=== PATIENT | male | born 1990 | race Caucasian/White ===

== ENCOUNTER 2018-03-20 21:34 | Inpatient (IN) | payer OTHER ==
[~2018-03-20] VITALS: Ht 180.3 cm; Wt 129.9 kg
[2018-03-20 22:57] LABS: Basophils # (auto) 0.1 uL; Basophils % (auto) 0.8 % (0.0-2.0); Eosinophils # (auto) 0.2 uL; Eosinophils % (auto) 2.7 % (0.0-7.0); Hematocrit 46.3 % (41.0-53.0); Lymphocytes # (auto) 1.9 uL; Lymphocytes % (auto) 26.9 % (10.0-50.0); Mean Corpuscular Hemoglobin 31.8 pg (28.0-32.0); Mean Corpuscular Hgb Conc. 34.7 g/dL (32.0-36.0); Mean Corpuscular Volume 91.6 fL (80.0-100.0); Monocytes # (auto) 0.6 uL; Monocytes % (auto) 8.9 % (0.0-12.0); Neutrophils # (auto) 4.3 uL; Neutrophils % (auto) 60.7 % (37.0-80.0); Nucleated Red Blood Cells % 0.2 %; Platelet Count (auto) 283 10^3/uL (140-450); Red Blood Cells 5.05 10^6/uL (4.5-5.90); Red Cell Distribution Width 13.1 % (11.8-14.3); White Blood Cell 7.1 10^3/uL (4.4-10.8)
[2018-03-20 23:18] LABS: Albumin 3.5 g/dL (3.4-5.0); Bilirubin, Total 2.8 mg/dL (0.2-1.0); Potassium 4.1 mmol/L (3.5-5.1); Total Protein 7.4 g/dL (6.4-8.2)
[2018-03-21] MEDS ORDERED: SODIUM CHLORIDE 0.9% 1,000 ML IV ONE (06:50)
[2018-03-21] MEDS ORDERED: KETOROLAC TROMETH 30 MG/ML 1ML VIAL IV ONE (07:00)
[2018-03-21] MEDS ORDERED: METOCLOPRAMIDE HCL 5MG/ml INJ 2ml VIAL IV ONE (07:00)
[2018-03-21 07:51] LABS: INR 0.93 (0.9-1.15); Partial Thromboplastin Time 27.5 sec (23.78-33.04)
[2018-03-21 10:18] LABS: Urine Bacteria FEW /hpf (None Seen); Urine Blood Negative /uL (Negative); Urine Mucus FEW (None Seen); Urine Specific Gravity 1.033 (1.001-1.035); Urine WBC 1 /hpf (0 - 3)
[2018-03-21] MEDS ORDERED: PANTOPRAZOLE 40 MG TAB PO ONE ×2 (14:00→14:15)
[2018-03-21] MEDS ORDERED: cefTRIAXone 1GM/10ml IVPUSH 10 ML IV ONE ×2 (14:00→14:15)
[2018-03-21] MEDS ORDERED: MORPHINE SULF INJ 2 MG/ML SYRINGE 1ML IV PRN ×2 (14:15)
[2018-03-21] MEDS ORDERED: ONDANSETRON HCL 4 MG/2 ML VIAL IV PRN (14:15)
[2018-03-21] MEDS ORDERED: NITROGLYCERIN 0.4 MG SL TAB SL PRN (14:15)
[2018-03-21] MEDS ORDERED: DOCUSATE SOD 100 MG CAP PO PRN (14:15)
[2018-03-21] MEDS ORDERED: ZINC SULFATE 220mg CAP or TAB PO ONE (14:15)
[2018-03-21] MEDS ORDERED: TEMAZEPAM 15 MG CAP PO PRN (14:15)
[2018-03-21] MEDS ORDERED: ACETAMINOPHEN 325 MG TAB PO PRN (14:15)
[2018-03-21] MEDS ORDERED: FAMOTIDINE 20 MG TAB PO ONE (14:30)
[2018-03-21] MEDS ORDERED: cloNIDine HCL 0.1 MG TAB PO PRN (14:30)
[2018-03-21] MEDS ORDERED: MULTIPLE VITAMIN TAB PO ONE (14:30)
[2018-03-21] MEDS ORDERED: ASCORBIC ACID 500 MG TAB PO ONE (14:30)
[2018-03-21] MEDS: SODIUM CHLORIDE 0.9% 1,000 ML IV SCH (15:00)
[2018-03-21] MEDS: metroNIDAZOLE 500MG/100ML 100 ML IV SCH ×2 (15:00→21:49)
[2018-03-21 18:42] VITALS: BP 115/74
[2018-03-21 21:45] VITALS: BP 136/72
[2018-03-21] MEDS: FAMOTIDINE 20 MG TAB PO SCH (21:47)
[2018-03-21] MEDS: ASCORBIC ACID 500 MG TAB PO SCH (21:47)
[2018-03-22 04:47] LABS: Basophils # (auto) 0 uL; Basophils % (auto) 0.6 % (0.0-2.0); Eosinophils # (auto) 0.2 uL; Eosinophils % (auto) 5.4 % (0.0-7.0); Hematocrit 42.7 % (41.0-53.0); Hemoglobin 14.7 g/dL (13.5-17.5); Lymphocytes # (auto) 1.4 uL; Lymphocytes % (auto) 32.7 % (10.0-50.0); Mean Corpuscular Hemoglobin 31.8 pg (28.0-32.0); Mean Corpuscular Hgb Conc. 34.4 g/dL (32.0-36.0); Mean Corpuscular Volume 92.4 fL (80.0-100.0); Monocytes # (auto) 0.6 uL; Monocytes % (auto) 14.3 % (0.0-12.0); Nucleated Red Blood Cells % 0.1 %; Platelet Count (auto) 247 10^3/uL (140-450); Red Blood Cells 4.62 10^6/uL (4.5-5.90); Red Cell Distribution Width 13.2 % (11.8-14.3); White Blood Cell 4.2 10^3/uL (4.4-10.8)
[2018-03-22 05:00] VITALS: BP 135/67
[2018-03-22 05:14] LABS: BUN/Creatinine Ratio 8.1; Bilirubin, Total 8.6 mg/dL (0.2-1.0); Calcium 8.3 mg/dL (8.5-10.1); Potassium 3.9 mmol/L (3.5-5.1); Total Protein 6.3 g/dL (6.4-8.2)
[2018-03-22] MEDS: metroNIDAZOLE 500MG/100ML 100 ML IV SCH ×3 (06:06→21:51)
[2018-03-22] MEDS: SODIUM CHLORIDE 0.9% 1,000 ML IV SCH (06:06)
[2018-03-22 08:00] VITALS: BP 135/65
[2018-03-22 09:05] VITALS: BP 135/65
[2018-03-22] MEDS: cefTRIAXone 1GM/10ml IVPUSH 10 ML IV SCH (09:21)
[2018-03-22] MEDS: MULTIPLE VITAMIN TAB PO SCH (09:21)
[2018-03-22] MEDS: ASCORBIC ACID 500 MG TAB PO SCH ×2 (09:21→21:51)
[2018-03-22] MEDS: FAMOTIDINE 20 MG TAB PO SCH ×2 (09:22→21:51)
[2018-03-22] MEDS: ZINC SULFATE 220mg CAP or TAB PO SCH (09:22)
[2018-03-22] MEDS: PANTOPRAZOLE 40 MG TAB PO SCH (09:22)
[2018-03-22 12:20] VITALS: BP 147/85
[2018-03-22 16:51] VITALS: BP 137/81
[2018-03-22 21:30] VITALS: BP 104/59
[2018-03-23] VITALS (7 sets, daily range): BP systolic 127–142; BP diastolic 68–85
[2018-03-23] MEDS: SODIUM CHLORIDE 0.9% 1,000 ML IV SCH ×2 (03:55→15:28)
[2018-03-23 05:38] LABS: Basophils # (auto) 0 uL; Basophils % (auto) 0.7 % (0.0-2.0); Eosinophils # (auto) 0.2 uL; Eosinophils % (auto) 4.4 % (0.0-7.0); Hematocrit 42.9 % (41.0-53.0); Lymphocytes # (auto) 1.8 uL; Lymphocytes % (auto) 35.1 % (10.0-50.0); Mean Corpuscular Hemoglobin 32.1 pg (28.0-32.0); Mean Corpuscular Hgb Conc. 34.9 g/dL (32.0-36.0); Mean Corpuscular Volume 91.8 fL (80.0-100.0); Monocytes # (auto) 0.5 uL; Monocytes % (auto) 10.1 % (0.0-12.0); Neutrophils # (auto) 2.6 uL; Neutrophils % (auto) 49.7 % (37.0-80.0); Platelet Count (auto) 268 10^3/uL (140-450); Red Blood Cells 4.68 10^6/uL (4.5-5.90); White Blood Cell 5.2 10^3/uL (4.4-10.8)
[2018-03-23] MEDS: metroNIDAZOLE 500MG/100ML 100 ML IV SCH ×3 (05:46→21:45)
[2018-03-23 06:23] LABS: Albumin 3.1 g/dL (3.4-5.0); BUN/Creatinine Ratio 8.7; Bilirubin, Total 2.1 mg/dL (0.2-1.0); Calcium 8.5 mg/dL (8.5-10.1); Potassium 3.9 mmol/L (3.5-5.1); Total Protein 6.8 g/dL (6.4-8.2)
[2018-03-23] MEDS: ZINC SULFATE 220mg CAP or TAB PO SCH (09:30)
[2018-03-23] MEDS: cefTRIAXone 1GM/10ml IVPUSH 10 ML IV SCH (09:30)
[2018-03-23] MEDS: MULTIPLE VITAMIN TAB PO SCH (09:30)
[2018-03-23] MEDS: ASCORBIC ACID 500 MG TAB PO SCH ×2 (09:31→21:45)
[2018-03-23] MEDS: FAMOTIDINE 20 MG TAB PO SCH ×2 (09:31→21:45)
[2018-03-23] MEDS: PANTOPRAZOLE 40 MG TAB PO SCH (09:31)
[2018-03-23] MEDS: HYDROcodone-ACET 5/325MG TAB PO PRN (15:27)
[2018-03-24] VITALS (7 sets, daily range): BP systolic 117–145; BP diastolic 65–81
[2018-03-24 05:50] LABS: Basophils # (auto) 0 uL; Basophils % (auto) 0.6 % (0.0-2.0); Eosinophils # (auto) 0.2 uL; Eosinophils % (auto) 3.9 % (0.0-7.0); Hematocrit 43.8 % (41.0-53.0); Lymphocytes # (auto) 1.8 uL; Lymphocytes % (auto) 32.7 % (10.0-50.0); Mean Corpuscular Hemoglobin 31.6 pg (28.0-32.0); Mean Corpuscular Hgb Conc. 34.3 g/dL (32.0-36.0); Mean Corpuscular Volume 92.1 fL (80.0-100.0); Monocytes # (auto) 0.5 uL; Monocytes % (auto) 9.8 % (0.0-12.0); Neutrophils # (auto) 2.9 uL; Nucleated Red Blood Cells % 0.1 %; Platelet Count (auto) 316 10^3/uL (140-450); Red Blood Cells 4.76 10^6/uL (4.5-5.90); Red Cell Distribution Width 12.8 % (11.8-14.3); White Blood Cell 5.5 10^3/uL (4.4-10.8)
[2018-03-24 06:01] LABS: INR 0.89 (0.9-1.15); Prothrombin Time 9.6 sec (9.27-12.13)
[2018-03-24 06:14] LABS: BUN/Creatinine Ratio 8.2; Bilirubin, Direct 1.2 mg/dL (0-0.2); Bilirubin, Total 1.5 mg/dL (0.2-1.0); Calcium 8.2 mg/dL (8.5-10.1); Potassium 3.9 mmol/L (3.5-5.1); Total Protein 6.6 g/dL (6.4-8.2)
[2018-03-24] MEDS: metroNIDAZOLE 500MG/100ML 100 ML IV SCH ×3 (06:44→22:14)
[2018-03-24] MEDS: cefTRIAXone 1GM/10ml IVPUSH 10 ML IV SCH (09:53)
[2018-03-24] MEDS: SODIUM CHLORIDE 0.9% 1,000 ML IV SCH (09:54)
[2018-03-24] MEDS: FAMOTIDINE 20 MG TAB PO SCH ×2 (10:00→22:14)
[2018-03-24] MEDS: PANTOPRAZOLE 40 MG TAB PO SCH (10:00)
[2018-03-24] MEDS: MULTIPLE VITAMIN TAB PO SCH (10:00)
[2018-03-24] MEDS: ASCORBIC ACID 500 MG TAB PO SCH ×2 (10:00→22:14)
[2018-03-24] MEDS: ZINC SULFATE 220mg CAP or TAB PO SCH (10:00)
[2018-03-24] MEDS ORDERED: IOHEXOL 300 MG/ML 100ML BOTTLE IJ ONE (10:34)
[2018-03-24] MEDS ORDERED: SUCCINYLCHOLINE CHLORIDE 20 MG/ML 10ML VIAL IV ONE (10:34)
[2018-03-24] MEDS ORDERED: fentaNYL CITRATE 100 MCG/2 ML VL ONE (10:40)
[2018-03-24] MEDS ORDERED: MIDAZOLAM HCL 1MG/1ML-2 ML VIAL ONE (10:41)
[2018-03-24] MEDS ORDERED: MEPERIDINE HCL (50 MG/ML) 1 ML VIAL ONE (10:41)
[2018-03-24] MEDS ORDERED: NEOSTIGMINE 1 MG/ML INJ (10mg/10ML VIAL) IV ONE (10:55)
[2018-03-24] MEDS ORDERED: GLYCOPYRROLATE 0.2 MG/ML 1ML VIAL IV ONE (10:55)
[2018-03-24] MEDS ORDERED: ePHEDrine SULFATE 50 MG/ML AMP IV PRN (11:00)
[2018-03-24] MEDS ORDERED: MIDAZOLAM HCL 1MG/1ML-2 ML VIAL IV PRN (11:00)
[2018-03-24] MEDS ORDERED: MORPHINE SULFATE 4 MG/ML SYR/VIAL IV PRN (11:00)
[2018-03-24] MEDS ORDERED: HYDROmorphone HCL 2 MG/ML VL IV PRN (11:00)
[2018-03-24] MEDS ORDERED: ONDANSETRON HCL 4 MG/2 ML VIAL IV ONE (11:00)
[2018-03-24] MEDS ORDERED: LABETALOL HCL 5 MG/ML 4ML SYRINGE IV PRN (11:00)
[2018-03-24] MEDS ORDERED: KETOROLAC TROMETH 30 MG/ML 1ML VIAL IV ONE (11:00)
[2018-03-24] MEDS ORDERED: PROPOFOL 10 MG/ML 20 ML IV ONE (11:12)
[2018-03-24] MEDS ORDERED: DEXAMETHASONE SOD PHOS 10MG/1ML VIAL INJ ONE (11:12)
[2018-03-24] MEDS ORDERED: MORPHINE SULFATE 4 MG/ML SYR/VIAL IV ONE (12:00)
[2018-03-25 05:00] VITALS: BP 139/70
[2018-03-25] MEDS: metroNIDAZOLE 500MG/100ML 100 ML IV SCH ×3 (06:42→21:36)
[2018-03-25] MEDS: SODIUM CHLORIDE 0.9% 1,000 ML IV SCH ×2 (06:43→18:10)
[2018-03-25 07:04] LABS: BUN/Creatinine Ratio 10.9; Calcium 8.7 mg/dL (8.5-10.1); Potassium 3.7 mmol/L (3.5-5.1)
[2018-03-25 08:08] LABS: Albumin 3.3 g/dL (3.4-5.0); Bilirubin, Direct 1.2 mg/dL (0-0.2); Bilirubin, Total 1.6 mg/dL (0.2-1.0)
[2018-03-25 09:00] VITALS: BP 123/72
[2018-03-25] MEDS: cefTRIAXone 1GM/10ml IVPUSH 10 ML IV SCH (09:00)
[2018-03-25] MEDS ORDERED: ceFAZolin 1GM/50ML 50 ML IV ONE (09:21)
[2018-03-25] MEDS: MULTIPLE VITAMIN TAB PO SCH (10:00)
[2018-03-25] MEDS: PANTOPRAZOLE 40 MG TAB PO SCH (10:00)
[2018-03-25] MEDS: ZINC SULFATE 220mg CAP or TAB PO SCH (10:00)
[2018-03-25] MEDS: ASCORBIC ACID 500 MG TAB PO SCH ×2 (10:00→21:37)
[2018-03-25] MEDS: FAMOTIDINE 20 MG TAB PO SCH ×2 (10:00→21:36)
[2018-03-25] MEDS ORDERED: SUCCINYLCHOLINE CHLORIDE 20 MG/ML 10ML VIAL IV ONE (10:43)
[2018-03-25] MEDS ORDERED: fentaNYL CITRATE 100 MCG/2 ML VL ONE ×2 (10:44→10:45)
[2018-03-25] MEDS ORDERED: MIDAZOLAM HCL 1MG/1ML-2 ML VIAL ONE (10:44)
[2018-03-25] MEDS ORDERED: ROCURONIUM 10MG/ML 10ML VIAL IV ONE (10:56)
[2018-03-25] MEDS ORDERED: HYDROmorphone HCL 2 MG/ML VL IV PRN (12:15)
[2018-03-25] MEDS ORDERED: ePHEDrine SULFATE 50 MG/ML AMP IV PRN (12:15)
[2018-03-25] MEDS ORDERED: ONDANSETRON HCL 4 MG/2 ML VIAL IV ONE (12:15)
[2018-03-25] MEDS ORDERED: hydrALAZINE HCL 20 MG/ML VL IV PRN (12:15)
[2018-03-25 13:00] VITALS: BP 137/76
[2018-03-25 17:00] VITALS: BP 130/69
[2018-03-25 20:00] VITALS: BP 117/65
[2018-03-25] MEDS: HYDROcodone-ACET 5/325MG TAB PO PRN (21:37)
[2018-03-26 04:35] VITALS: BP 121/71
[2018-03-26] MEDS: metroNIDAZOLE 500MG/100ML 100 ML IV SCH ×3 (06:03→21:38)
[2018-03-26 06:23] LABS: Basophils # (auto) 0 uL; Basophils % (auto) 0.2 % (0.0-2.0); Eosinophils # (auto) 0 uL; Eosinophils % (auto) 0.3 % (0.0-7.0); Hematocrit 43.3 % (41.0-53.0); Hemoglobin 14.9 g/dL (13.5-17.5); Lymphocytes # (auto) 2.2 uL; Lymphocytes % (auto) 21.9 % (10.0-50.0); Mean Corpuscular Hemoglobin 31.6 pg (28.0-32.0); Mean Corpuscular Hgb Conc. 34.4 g/dL (32.0-36.0); Mean Corpuscular Volume 91.9 fL (80.0-100.0); Monocytes # (auto) 0.8 uL; Monocytes % (auto) 7.7 % (0.0-12.0); Neutrophils % (auto) 69.9 % (37.0-80.0); Nucleated Red Blood Cells % 0.1 %; Platelet Count (auto) 353 10^3/uL (140-450); Red Blood Cells 4.72 10^6/uL (4.5-5.90)
[2018-03-26 06:56] LABS: Albumin 3.1 g/dL (3.4-5.0); BUN/Creatinine Ratio 7.3; Bilirubin, Total 1.4 mg/dL (0.2-1.0); Calcium 8.3 mg/dL (8.5-10.1); Potassium 3.8 mmol/L (3.5-5.1); Total Protein 6.5 g/dL (6.4-8.2)
[2018-03-26 09:00] VITALS: BP 131/75
[2018-03-26] MEDS: cefTRIAXone 1GM/10ml IVPUSH 10 ML IV SCH (10:06)
[2018-03-26] MEDS: PANTOPRAZOLE 40 MG TAB PO SCH (10:07)
[2018-03-26] MEDS: FAMOTIDINE 20 MG TAB PO SCH ×2 (10:07→21:38)
[2018-03-26] MEDS: ASCORBIC ACID 500 MG TAB PO SCH ×2 (10:07→21:38)
[2018-03-26] MEDS: ZINC SULFATE 220mg CAP or TAB PO SCH (10:07)
[2018-03-26] MEDS: MULTIPLE VITAMIN TAB PO SCH (10:07)
[2018-03-26] MEDS: SODIUM CHLORIDE 0.9% 1,000 ML IV SCH (11:14)
[2018-03-26 13:00] VITALS: BP 139/73
[2018-03-26 17:00] VITALS: BP 148/81
[2018-03-26 22:00] VITALS: BP 140/85
[2018-03-27] MEDS: SODIUM CHLORIDE 0.9% 1,000 ML IV SCH (03:23)
[2018-03-27 05:00] VITALS: BP 139/81
[2018-03-27] MEDS: metroNIDAZOLE 500MG/100ML 100 ML IV SCH (05:38)
[2018-03-27 06:21] LABS: Basophils # (auto) 0 uL; Basophils % (auto) 0.5 % (0.0-2.0); Eosinophils # (auto) 0.1 uL; Eosinophils % (auto) 1.4 % (0.0-7.0); Hematocrit 44.9 % (41.0-53.0); Hemoglobin 15.5 g/dL (13.5-17.5); Lymphocytes # (auto) 1.9 uL; Lymphocytes % (auto) 20.8 % (10.0-50.0); Mean Corpuscular Hemoglobin 31.5 pg (28.0-32.0); Mean Corpuscular Hgb Conc. 34.5 g/dL (32.0-36.0); Mean Corpuscular Volume 91.1 fL (80.0-100.0); Monocytes # (auto) 0.9 uL; Monocytes % (auto) 9.4 % (0.0-12.0); Neutrophils # (auto) 6.2 uL; Neutrophils % (auto) 67.9 % (37.0-80.0); Nucleated Red Blood Cells % 0.1 %; Platelet Count (auto) 351 10^3/uL (140-450); Red Blood Cells 4.93 10^6/uL (4.5-5.90); Red Cell Distribution Width 12.6 % (11.8-14.3); White Blood Cell 9.1 10^3/uL (4.4-10.8)
[2018-03-27 06:29] LABS: Albumin 3.2 g/dL (3.4-5.0); BUN/Creatinine Ratio 6.7; Bilirubin, Total 1.6 mg/dL (0.2-1.0); Calcium 8.5 mg/dL (8.5-10.1); Potassium 3.7 mmol/L (3.5-5.1); Total Protein 6.7 g/dL (6.4-8.2)
[2018-03-27 09:00] VITALS: BP 140/81
[2018-03-27] MEDS: ZINC SULFATE 220mg CAP or TAB PO SCH (10:00)
[2018-03-27] MEDS: cefTRIAXone 1GM/10ml IVPUSH 10 ML IV SCH (10:25)
[2018-03-27] MEDS: PANTOPRAZOLE 40 MG TAB PO SCH (10:26)
[2018-03-27] MEDS: MULTIPLE VITAMIN TAB PO SCH (10:26)
[2018-03-27] MEDS: FAMOTIDINE 20 MG TAB PO SCH (10:26)
[2018-03-27] MEDS: ASCORBIC ACID 500 MG TAB PO SCH (10:26)
== END 2018-03-27 12:27 | disposition home or self-care (01) | DRG 418 ==
LOC: ER 21:49 → OVERFLOW 21:50 → WEST WING 03-21 17:37
PROVIDERS: ADMIT Internal Medicine; ATTEND Family Medicine
PROC: 0FC98ZZ Extirpation of Matter from Common Bile Duct, Via Natural or Artificial Opening Endoscopic (ICD-10-PCS; 2018-03-24)
PROC: 0F768ZZ Dilation of Left Hepatic Duct, Via Natural or Artificial Opening Endoscopic (ICD-10-PCS; 2018-03-24)
PROC: BF101ZZ Fluoroscopy of Bile Ducts using Low Osmolar Contrast (ICD-10-PCS; 2018-03-24)
PROC: 0F758ZZ Dilation of Right Hepatic Duct, Via Natural or Artificial Opening Endoscopic (ICD-10-PCS; 2018-03-24)
PROC: 0FT44ZZ Resection of Gallbladder, Percutaneous Endoscopic Approach (ICD-10-PCS; principal; 2018-03-25 10:35)
DX: K80.62 Calculus of gallbladder and bile duct with acute cholecystitis without obstruction (principal); N39.0 Urinary tract infection, site not specified; I12.9 Hypertensive chronic kidney disease with stage 1 through stage 4 chronic kidney disease, or unspecified chronic kidney disease; E66.01 Morbid (severe) obesity due to excess calories; K21.9 Gastro-esophageal reflux disease without esophagitis; K59.00 Constipation, unspecified; K82.8 Other specified diseases of gallbladder; N18.2 Chronic kidney disease, stage 2 (mild); Z82.49 Family history of ischemic heart disease and other diseases of the circulatory system; Z83.3 Family history of diabetes mellitus; Z79.899 Other long term (current) drug therapy; Z68.39 Body mass index [BMI] 39.0-39.9, adult
CPT/HCPCS: 36415; 43264; 71046; 74018; 74176; 80048; 80053; 80076; 81001; 82150; 83690; 83735; 84443; 85025; 85610; 85730; 86850; 86900; 86901; 87040; 87086; 93005; 96361; 96374; 96375; A6257; J0330; J0690; J0696; J1100; J1885; J2250; J2405; J2704; J3490